=== PATIENT | male | born 1990 | race Caucasian/White ===

== ENCOUNTER 2020-12-20 13:08 | Outpatient (RCR) | payer MEDICAID, SELFPAY ==
[2020-12-20] MEDS: COVID-19 VACC, MRNA(PFIZER)/PF 30 MCG/0.3 ML SYRINGE IM (16:27)
[2021-01-10] MEDS: COVID-19 VACC, MRNA(PFIZER)/PF 30 MCG/0.3 ML SYRINGE IM (15:51)
== END 2020-12-20 23:59 ==
LOC: IMMUN 13:08
PROVIDERS: PCP Internal Medicine; Visit Provider Family Medicine
DX: Z23 Encounter for immunization (principal)
CPT/HCPCS: 0001A; 0002A; 91300

== ENCOUNTER 2022-12-19 23:51 | Emergency (ER) | payer MEDICARE, MEDICAID, SELFPAY ==
[2022-12-19 23:53] VITALS: BP 134/87; PULSE 86; RESP 18; TEMP 36.8; O2SAT 97; BMI 34.4
--- NOTE | 2022-12-20 00:40 | RAD_ITS ---
INDICATION: injury EXAMINATION/TECHNIQUE: X-RAY - LEFT XR Ankle Min 3 Views 3 VIEWS COMPARISON: None. FINDINGS: SOFT TISSUES: No soft tissue swelling or gas. No radiopaque foreign body. BONES/JOINTS: There is a nondisplaced fracture of the lateral malleolus. Normal alignment. Preservation of the joint space.. No sclerotic or destructive changes observed. RAD/Ankle min 3 Views IMPRESSION: There is a nondisplaced fracture of the lateral malleolus. Electronically Signed: Osvaldo Angel MD at 1:12 EDT ,
--- NOTE | 2022-12-20 00:45 | RAD_ITS ---
INDICATION: injury EXAMINATION/TECHNIQUE: X-RAY - LEFT XR Knee Complete 4 Views or More 5 VIEWS COMPARISON: None. FINDINGS: SOFT TISSUES: No soft tissue swelling or gas. Multiple nonspecific calcifications are seen in the soft tissues may represent phleboliths. BONES/JOINTS: No acute fracture or subluxation.. Normal alignment. Preservation of the joint space.. No sclerotic or destructive changes observed. RAD/Knee 4 or More Views IMPRESSION: No evidence of fracture. Electronically Signed: Osvaldo Angel MD at 1:14 EDT ,
--- NOTE | 2022-12-20 02:08 | EDS_ITS ---
HPI History of Present Illness Chief Complaint: Lower Extremity Injury Informant: patient and family Occured/Mechanism Mechanism/Context: Yes fall Onset/Context/Timing Onset: Today Narrative Narrative: Patient presents after fall at local restaurant. Patient reports that he ambulates with a walker normally. He was walking into a local restaurant when he tripped on uneven pavement. He has abrasions to his left knee and complains of pain to his left ankle. He has been able to bear weight since the injury. He denies striking his head or any back pain. [facility] Medical History Kidney disease Neurofibroma Home Medications amlodipine 2.5 mg tablet 2.5 mg PO DAILY 12/19/22 [History Last Taken Unknown] apixaban 2.5 mg tablet (Eliquis) 2.5 mg PO BID 12/19/22 [History Last Taken Unknown] carvedilol 25 mg tablet 37.5 mg PO BID 12/19/22 [History Last Taken Unknown] cetirizine 10 mg capsule mg 12/19/22 [History Last Taken Unknown] citalopram 20 mg tablet 20 mg PO BID 12/19/22 [History Last Taken Unknown] famotidine 20 mg tablet mg 12/19/22 [History Last Taken Unknown] ferrous sulfate 325 mg (65 mg iron) tablet (FeroSul) 1 mg PO DAILY 12/19/22 [History Last Taken Unknown] hydroxyzine HCl 50 mg tablet 50 mg PO BID PRN Itching 12/19/22 [History Last Taken Unknown] ipratropium bromide 21 mcg (0.03 %) nasal spray 2 spray intranasal BID 12/19/22 [History Last Taken Unknown] losartan 25 mg tablet 25 mg PO DAILY 12/19/22 [History Last Taken Unknown] pravastatin 10 mg tablet mg 12/19/22 [History Last Taken Unknown] promethazine 25 mg tablet 25 mg PO Q8H PRN n/v 12/19/22 [History Last Taken Unknown] sodium bicarbonate 650 mg tablet 1,300 mg PO BID 12/19/22 [History Last Taken Unknown] tizanidine 4 mg tablet 4 mg PO DAILY 12/19/22 [History Last Taken Unknown] torsemide 20 mg tablet 20 mg PO DAILY 12/19/22 [History Last Taken Unknown] oxycodone 5 mg tablet 5 mg PO Q6H PRN pain 3 days #10 tabs 12/20/22 [Rx Last Taken Unknown] Allergy/AdvReac Type Severity Reaction Status Date / Time ibuprofen AdvReac Other Verified 12/20/22 00:11 lisinopril AdvReac Other Verified 12/20/22 00:11 Social History Smoking Status: Never smoker ROS ROS ED Constitutional Constitutional ED: Denies chills or fever(s) Eyes Eyes: Denies discharge from eye(s) ENT ENT ED: Denies discharge from eye(s), rhinorrhea or sore throat Cardiovascular Cardiovascular: Denies chest pain Respiratory/Chest Respiratory/Chest: Denies cough or dyspnea Gastrointestinal Gastrointestinal: Denies abdominal pain, nausea or vomiting Genitourinary Genitourinary ED: Denies dysuria Musculoskeletal Musculoskeletal: Reports extremity pain; Denies back pain Integumentary Reports Abrasions; Denies rash Neurologic Neurologic: Denies headache(s) or weakness Psychiatric Psychiatric: Denies anxiety or depression Allergic/Immunologic Allergic/Immunologic ED: Denies lip swelling or urticaria EXAM Physical Exam Const Vital Signs: 12/19/22 23:53 Temperature 98.3 F Temperature Source Oral Pulse Rate 86 Respiratory Rate 18 Blood Pressure 134/87 H Blood Pressure Mean 102 Pulse Ox 97 Oxygen Delivery Method Room Air Positive well nourished and well developed General Appearance ED: well developed HEENT Reports normocephalic and head/scalp atraumatic Eyes PERRL and EOMs intact bilaterally Neck supple Chest Wall inspection of chest normal and palpation of chest normal Resp normal respiratory effort and clear to auscultation bilaterally Cardio regular rate and regular rhythm GI normal to inspection, nondistended, normoactive bowel sounds Palpation: soft Extremity Extremity Narrative: Abrasions noted to the left anterior knee. Mild tenderness with good range of motion. No tenderness of the left hip. Patient does have mild tenderness to the lateral malleolus of the left ankle. He has bilateral lower extremity edema that appears symmetric. No tenderness over the foot itself. No tenderness at the proximal fibula. Neuro oriented x3 and no sensory deficits noted Sensorium / Orientation: alert Motor Exam: strength 5/5 throughout Psych mental status grossly normal MDM MDM MDM Narrative Medical decision making narrative: Patient had taken Tylenol prior to arrival. X-rays of the left knee and left ankle are obtained. Radiography Diagnostic Testing: Clinical Impression(s) from Imaging Studies Ankle X-Ray 12/20/22 00:40 IMPRESSION: There is a nondisplaced fracture of the lateral malleolus. Electronically Signed: Osvaldo Angel MD at 1:12 EDT Reading Location ID and State: [facility] / [place] Tel , Service support , Knee X-Ray 12/20/22 00:45 IMPRESSION: No evidence of fracture. Electronically Signed: Osvaldo Angel MD at 1:14 EDT , Treatment and Re-Evaluation Narrative: Left knee x-ray per my interpretation reveals no acute fracture. Left ankle x- ray per my interpretation reveals distal fibular fracture. This does appear to be a spiral and at the tibial talar joint. Radiology interpretation is reviewed. Test results are discussed with patient and family at bedside. He is placed in a walking boot. He already uses a walker and will offload much weight off of this foot. He is given a prescription for oxycodone tabs that he can quynh e for breakthrough pain but will try to stick with Tylenol. He is referred to podiatry for follow-up. Discharge Plan Triage Chief Complaint: Lower Extremity Injury ED Provider: Brie De Leon Dx/Rx/DC Orders Clinical Impression: Ankle fracture Instructions: ED Ankle Fracture, Distal Fibula Prescriptions: New oxycodone 5 mg tablet 5 mg PO Q6H PRN (Reason: pain) 3 Days Qty: 10 0RF No Action carvedilol 25 mg tablet 37.5 mg PO BID Label Comments: TAKE 1 & 1/2 (ONE & ONE-HALF) TABLETS BY MOUTH TWICE DAILY WITH MEALS torsemide 20 mg tablet 20 mg PO DAILY Label Comments: TAKE 1 TABLET BY MOUTH EVERY OTHER DAY NEEDED tizanidine 4 mg tablet 4 mg PO DAILY Label Comments: TAKE 1 TABLET BY MOUTH ONCE DAILY amlodipine 2.5 mg tablet 2.5 mg PO DAILY Label Comments: TAKE 1 TABLET BY MOUTH ONCE DAILY hydroxyzine HCl 50 mg Tablet 50 mg PO BID PRN (Reason: Itching) citalopram 20 mg tablet 20 mg PO BID Label Comments: TAKE 1 & 1/2 (ONE & ONE-HALF) TABLETS BY MOUTH ONCE DAILY famotidine 20 mg Tablet pravastatin 10 mg tablet sodium bicarbonate 650 mg tablet 1,300 mg PO BID Label Comments: TAKE 2 TABLETS BY MOUTH TWICE DAILY ferrous sulfate [FeroSul] 325 mg (65 mg iron) tablet 1 mg PO DAILY promethazine 25 mg tablet 25 mg PO Q8H PRN (Reason: n/v) Label Comments: TAKE 1 TABLET BY MOUTH EVERY 8 HOURS NEEDED FOR NAUSEA AND VOMITING losartan 25 mg tablet 25 mg PO DAILY Label Comments: TAKE 1 TABLET BY MOUTH ONCE DAILY ipratropium bromide 21 mcg (0.03 %) [place],Non-Aerosol 2 spray INTRANASAL BID Rx Instructions: administer into each nostril cetirizine 10 mg Capsule Eliquis 2.5 mg Tablet 2.5 mg PO BID Primary Care Provider: Evens Todd Referrals: Devante Pina DPM [Med Staff - Active Staff] - 5-7 Days Evens Todd MD [Primary Care Provider] - Disposition Disposition: Home, Self Care Discharge Date/Time: 12/20/22 02:37
== END 2022-12-20 02:37 | disposition home or self-care (01) ==
PROVIDERS: Emergency Provider Emergency Medicine; PCP Internal Medicine; Visit Provider Emergency Medicine
DX: S82.892A Other fracture of left lower leg, initial encounter for closed fracture (principal); Y92.511 Restaurant or cafe as the place of occurrence of the external cause; W01.0XXA Fall on same level from slipping, tripping and stumbling without subsequent striking against object, initial encounter
CPT/HCPCS: 73564; 73610; 99283

== ENCOUNTER 2023-01-15 19:34 | Emergency (ER) | payer MEDICARE, MEDICAID, SELFPAY ==
[2023-01-15 19:35] VITALS: BP 140/81; PULSE 96; RESP 16; TEMP 37.3; O2SAT 98
--- NOTE | 2023-01-15 20:11 | EDS_ITS ---
HPI History of Present Illness Chief Complaint: Fatigue Informant: police/rv service technician Narrative Narrative: 32-year-old male here for fatigue. Patient states he is at malaise, brain fog that has been ongoing for the last week. He is feeling off and is dizzy. Patient denies chest pain, shortness of breath. Denies fever. Denies weakness, numbness, loss of sensation, facial droop or trouble speaking more than baseline. He endorses history of chronic kidney disease for which he is on kidney transplant list. [facility] Medical History Kidney disease Neurofibroma Home Medications amlodipine 2.5 mg tablet 2.5 mg PO DAILY 12/19/22 [History Last Taken Unknown] apixaban 2.5 mg tablet (Eliquis) 2.5 mg PO BID 12/19/22 [History Last Taken Unknown] carvedilol 25 mg tablet 37.5 mg PO BID 12/19/22 [History Last Taken Unknown] cetirizine 10 mg capsule mg 12/19/22 [History Last Taken Unknown] citalopram 20 mg tablet 20 mg PO BID 12/19/22 [History Last Taken Unknown] famotidine 20 mg tablet mg 12/19/22 [History Last Taken Unknown] ferrous sulfate 325 mg (65 mg iron) tablet (FeroSul) 1 mg PO DAILY 12/19/22 [History Last Taken Unknown] hydroxyzine HCl 50 mg tablet 50 mg PO BID PRN Itching 12/19/22 [History Last Taken Unknown] ipratropium bromide 21 mcg (0.03 %) nasal spray 2 spray intranasal BID 12/19/22 [History Last Taken Unknown] losartan 25 mg tablet 25 mg PO DAILY 12/19/22 [History Last Taken Unknown] pravastatin 10 mg tablet mg 12/19/22 [History Last Taken Unknown] promethazine 25 mg tablet 25 mg PO Q8H PRN n/v 12/19/22 [History Last Taken Unknown] sodium bicarbonate 650 mg tablet 1,300 mg PO BID 12/19/22 [History Last Taken Unknown] tizanidine 4 mg tablet 4 mg PO DAILY 12/19/22 [History Last Taken Unknown] torsemide 20 mg tablet 20 mg PO DAILY 12/19/22 [History Last Taken Unknown] oxycodone 5 mg tablet 5 mg PO Q6H PRN pain 3 days #10 tabs 12/20/22 [Rx Last T aken Unknown] Allergy/AdvReac Type Severity Reaction Status Date / Time ibuprofen AdvReac Other Verified 01/15/23 19:35 lisinopril AdvReac Other Verified 01/15/23 19:35 Social History Smoking Status: Never smoker ROS ROS ED ROS Narrative Constitutional: Denies fever, endorses fatigue and malaise HEENT: Denies sore throat Neck: Denies neck pain Cardiovascular: Denies chest pain, syncope Respiratory: Denies shortness of breath GI: Denies nausea vomiting or abdominal pain : Denies changes in urinary habits Musculoskeletal: Denies muscle or joint pain Neurologic: Denies numbness weakness or loss of sensation, endorses dizziness Skin denies rash EXAM Physical Exam Narrative Exam Narrative: Nursing triage notes reviewed, Vital signs reviewed Constitutional: please see mdm HENT: MMM Eyes: Pupils equal round and reactive to light, Extraocular muscles intact Neck: No stridor, no JVD, full neck ROM Lungs: Clear to auscultation, No wheezing or rales. No increased work of breathing, no conversational dyspnea, no accessory muscle use, no nasal flaring. No respiratory distress noted Heart: Regular rate and rhythm, No murmurs, No rubs and No gallops, 2+ distal pulses (radial, femoral, posterior tibial) in all extremities Abdomen: Soft, there is no tenderness, rigidity, rebound or guarding, no obvious peritoneal signs, no palpable pulsatile abdominal masses, no auscultated abdominal bruit : No CVAT Extremities: No edema Neuro: Alert and oriented x3, neuro exam at baseline, cranial nerves II through XII are intact. No pain with extraocular muscle movement. There is negative test of skew. Normal speech. 5 of 5 strength in upper and lower extremities in flexion extension. Intact sensation to light touch in upper and lower extremity dermatomes. No truncal or extremity ataxia. No dysdiadochokinesia. Normal gait. 2+ reflexes. No meningeal signs. Negative Babinski. NIH of 0 Skin: No rash or lesions noted Const Vital Signs: 01/15/23 19:35 01/15/23 20:58 01/15/23 20:58 Temperature 99.2 F H Temperature Source Temporal Pulse Rate 96 92 Respiratory Rate 16 Respiratory Effort Normal Non-Labored Respiratory Pattern Normal Blood Pressure 140/81 H Blood Pressure Mean 100 Pulse Ox 98 Oxygen Delivery Method Room Air MDM MDM MDM Narrative Medical decision making narrative: Chief Complaint: Fatigue, dizziness malaise External records reviewed: Seen in the ED on 12/20/2022 and diagnosed with left fibular fracture. Reviewed clinical clinic record shows baseline creatinine of 4, GFR 17 I considered the following differential diagnosis: Arrhythmia, myocardial ischemia, anemia, PE, pneumonia, COVID I obtained a broad lab and imaging work-up to further elucidate the etiology the patient complaints. Labs images remarkable for no evidence of severe systemic inflammation, severe anemia, no evidence of worsening renal function (baseline CKD), no evidence of myocardial schema, pancreatitis or UTI. COVID, flu were negative. I considered pulmonary embolism however thought this was less likely given the patient is currently on Eliquis has no chest pain or shortness of breath. Additionally, there are no signs of right heart strain on EKG and troponin was negative. No clear etiology of patient's complaints however this nonfocal neurologic exam, stable vitals, negative lab and imaging work-up I have low suspicion that his presentation is life-threatening at this time. He is appropriate for outpatient follow-up. I completed a structured, evidence-based clinical evaluation to screen for acute stroke and neurologic deficits in this patient. The patient has a normal detailed neurologic exam, which is highly sensitive for dangerous causes of dizziness, vertigo, or loss of balance. The evidence indicates that the patient is very low risk for an acute neurologic emergency and this is consistent with my clinical intuition. The risk of further workup or hospitalization is likely higher than the risk of the patient having a stroke or other dangerous neurologic condition. It is, therefore, in the patient?s best interest not to do additional emergent testing or to be hospitalized at this time. Shared Decision-Making I have discussed with the patient my clinical impression and the result of an evidence-based clinical evaluation to screen for stroke, as well as the risk of further testing and hospitalization. The evidence shows that the risk for stroke is less than 1%. Although the risk of stroke has not been completely eliminated, the risks of further testing or hospitalization likely exceed any potential benefit, and the patient agrees with not pursuing further emergent evaluation or hospitalization for stroke evaluation at this time. Factors affecting care: History of hypertension Social determinants of health: Poor health literacy History obtained from others: None Consults: None Lab Data Attestation: I reviewed the patient's lab results. Lab results narrative: CBC with no leukocytosis, noted anemia, no thrombocytopenia. BMP with baseline CKD, no significant electrolyte abnormalities, no anion gap to suggest endorgan hypoperfusion Troponin is negative, no evidence of myocardial ischemia Lipase is wnl indicating no pancreatic inflammation. UA without evidence of infection Labs: Laboratory Results - last 24 hr 01/15/23 01/15/23 01/15/23 21:00 21:00 21:00 WBC 5.3 RBC 3.41 L Hgb 10.8 L Hct 32.9 L MCV 96.5 H MCH 31.7 MCHC 32.8 RDW Std Deviation 44.6 H RDW Coeff of Dale 12.6 Plt Count 245 MPV 10.7 Immature Gran % (Auto) 0.200 Neut % (Auto) 58.5 Lymph % (Auto) 28.8 [place] % (Auto) 9.0 Eos % (Auto) 2.8 Baso % (Auto) 0.7 Absolute Neuts (auto) 3.1 Absolute Lymphs (auto) 1.54 Nucleated RBC % 0 Sodium 139 Potassium 4.4 Chloride 111 H Carbon Dioxide 23.0 Anion Gap 5 BUN 40 H Creatinine 4.62 H Estim Creat Clear Calc 23.70 Est GFR (MDRD) Af Amer 19 L Est GFR (MDRD) Non-Af 16 L BUN/Creatinine Ratio 8.7 L Glucose 130 H Calcium 8.7 Troponin I High Sens 4 Lipase 36 Urine Color Yellow Urine Clarity Clear Urine pH 7.0 Ur Specific [place] 1.005 Urine Protein 100 H Urine Glucose (UA) 250 H Urine Ketones Negative Urine Occult Blood 10 H Urine Nitrite Negative Urine Bilirubin Negative Urine Urobilinogen Normal Ur Leukocyte Esterase Negative Urine RBC 0 SEEN Urine WBC 0 SEEN Ur Squamous Epith Cells 0 SEEN Urine Bacteria 0 SEEN Urine Mucus 0 SEEN Radiography Chest X-Ray - ED: Read by ED Physician Diagnostic Testing: Clinical Impression(s) from Imaging Studies Chest X-Ray 01/15/23 21:06 IMPRESSION: Left basilar atelectasis. Electronically Signed: Seymour Thompson DO at 21:20 EDT Reading Location ID and State: [facility] / [place] Tel [phone], Service support , I have personally reviewed the patient's chest x-ray. Chest x-ray is unremarkable for pulmonary edema, pneumothorax, pneumonia or focal cardiopulmonary abnormality. EKG Initial EKG: Attestation: I personally reviewed and interpreted this EKG as follows: Comments: EKG with normal sinus rhythm, normal axis, normal intervals, no STEMI Discharge Plan Triage Chief Complaint: Fatigue ED Provider: Abel Ramirez Dx/Rx/DC Orders Clinical Impression: Fatigue, Malaise, CKD (chronic kidney disease), History of type 2 neurofibromatosis Instructions: ED Chronic Kidney Disease (CKD), ED Renal Insufficiency Prescriptions: No Action carvedilol 25 mg tablet 37.5 mg PO BID Label Comments: TAKE 1 & 1/2 (ONE & ONE-HALF) TABLETS BY MOUTH TWICE DAILY WITH MEALS torsemide 20 mg tablet 20 mg PO DAILY Label Comments: TAKE 1 TABLET BY MOUTH EVERY OTHER DAY NEEDED tizanidine 4 mg tablet 4 mg PO DAILY Label Comments: TAKE 1 TABLET BY MOUTH ONCE DAILY amlodipine 2.5 mg tablet 2.5 mg PO DAILY Label Comments: TAKE 1 TABLET BY MOUTH ONCE DAILY hydroxyzine HCl 50 mg Tablet 50 mg PO BID PRN (Reason: Itching) citalopram 20 mg tablet 20 mg PO BID Label Comments: TAKE 1 & 1/2 (ONE & ONE-HALF) TABLETS BY MOUTH ONCE DAILY famotidine 20 mg Tablet pravastatin 10 mg tablet sodium bicarbonate 650 mg tablet 1,300 mg PO BID Label Comments: TAKE 2 TABLETS BY MOUTH TWICE DAILY ferrous sulfate [FeroSul] 325 mg (65 mg iron) tablet 1 mg PO DAILY promethazine 25 mg tablet 25 mg PO Q8H PRN (Reason: n/v) Label Comments: TAKE 1 TABLET BY MOUTH EVERY 8 HOURS NEEDED FOR NAUSEA AND VOMITING losartan 25 mg tablet 25 mg PO DAILY Label Comments: TAKE 1 TABLET BY MOUTH ONCE DAILY ipratropium bromide 21 mcg (0.03 %) [place],Non-Aerosol 2 spray INTRANASAL BID Rx Instructions: administer into each nostril cetirizine 10 mg Capsule Eliquis 2.5 mg Tablet 2.5 mg PO BID oxycodone 5 mg tablet 5 mg PO Q6H PRN (Reason: pain) 3 Days Qty: 10 0RF Primary Care Provider: Evens Todd Referrals: Evens Todd MD [Primary Care Provider] - Disposition Disposition: Home, Self Care Discharge Date/Time: 01/15/23 22:54
--- NOTE | 2023-01-15 20:32 | EKG12_ITS ---
Test Reason : MALAISE Blood Pressure : / mmHG Vent. Rate : 087 BPM Atrial Rate : 087 BPM P-R Int : 158 ms QRS Dur : 086 ms QT Int : 348 ms P-R-T Axes : 032 034 055 degrees QTc Int : 418 ms Normal sinus rhythm Normal ECG Confirmed by MELVIN GARAY ([id number]), writer editor RUBY CHARLES ([id number]) on 01/19/2023 7:53:29 AM Referred By: Confirmed By:MELVIN GARAY
[2023-01-15 20:54] VITALS: BMI 34.8
[2023-01-15 20:58] VITALS: PULSE 92
[2023-01-15 21:05] LABS: Bacteria 0 SEEN /hpf (None Seen); Mucous, Urine 0 SEEN /hpf (<or=2+); Red Blood Cells-Urine 0 SEEN /hpf (0-5); Squamous Epithelial Cells - UA 0 SEEN /hpf (0-5); White Blood Cells 0 SEEN /hpf (0-5)
--- NOTE | 2023-01-15 21:06 | RAD_ITS ---
INDICATION: Fatigue EXAMINATION/TECHNIQUE: X-RAY - XR Chest 1 View COMPARISON: None. FINDINGS: LINES/DEVICES: None. LUNGS: No consolidation, edema or effusion. Left basilar atelectasis. No pneumothorax. MEDIASTINUM AND CARDIOVASCULAR STRUCTURES: Cardiac silhouette not enlarged. Central airways and mediastinal contour are unremarkable. BONES AND SOFT TISSUES: Mild scoliosis. RAD/Chest 1 View (Portable) IMPRESSION: Left basilar atelectasis. Electronically Signed: Seymour Thompson DO at 21:20 EDT ,
[2023-01-15 21:18] LABS: Absolute Lymphocyte Count 1.54 X10^3/uL (0.83-4.51); Absolute Neutrophil Count 3.1 X10^3/uL (2.0-7.7); Basophil# 0.04 X10^3/uL; Basophil% 0.7 % (0-1); Color, Urine Yellow (Yellow); Eosinophil# 0.15 X10^3/uL; Eosinophils% 2.8 % (0-5); Glucose, Dipstick 250 mg/dl (Normal); Hematocrit 32.9 % (40-54); Hemoglobin 10.8 g/dL (13.0-16.5); Ketone-Dipstick Negative (Negative); Leukocyte Esterase-Dipstick Negative /ul (Negative); Lymphocyte # 1.54 X10^3/ul (0.83-4.51); Lymphocyte % 28.8 % (19-41); Mean Corp Hgb Conc 32.8 g/dL (32-36); Mean Corpuscular Hgb 31.7 pg (27.0-32.0); Mean Corpuscular Volume 96.5 fL (80-94); Mean Platelet Vol. 10.7 fl (6.2-12.0); Monocyte# 0.48 X10^3/uL; NRBC Flagged by Analyzer 0 % (0-5); Neutrophil # 3.12 X10^3/uL (2.7-7.7); Neutrophil % 58.5 % (47-70); Nitrite-Dipstick Negative (Negative); Occult Blood-Urine 10 /ul (Negative); Platelet Count 245 K/mm3 (150-450); Protein-Dipstick 100 mg/dl (Negative); RBC Distribution Width CV 12.6 % (11.6-14.6); RBC Distribution Width SD 44.6 fl (35.1-43.9); Red Blood Count 3.41 M/mm3 (4.6-6.2); Specific Gravity, Urine 1.005 (1.002-1.030); Urine Bilirubin Dipstick Negative (Negative); Urine Clarity Clear (Clear); Urine Urobilinogen Normal (Normal); White Blood Count 5.3 K/mm3 (4.4-11.0)
[2023-01-15 21:35] LABS: Anion Gap 5 (5-15); BUN 40 mg/dL (7-18); BUN/Creat Ratio 8.7 RATIO (10-20); Calcium,Total 8.7 mg/dL (8.5-10.1); Chloride 111 mmol/L (98-107); Creatinine, Serum 4.62 mg/dL (0.70-1.30); EST Glomerular Filtration Rate 16 mL/min (>60); Est Glom Filt Rate - Afr Amer 19 mL/min (>60); Glucose 130 mg/dL (74-106); Lipase 36 U/L (13-75); Potassium 4.4 mmol/L (3.5-5.1); Sodium Level 139 mmol/L (136-145); Troponin-I HS 4 pg/mL (3.0-78.0)
== END 2023-01-15 22:54 | disposition home or self-care (01) ==
PROVIDERS: Emergency Provider Emergency Medicine; PCP Internal Medicine; Visit Provider Emergency Medicine
DX: R53.83 Other fatigue (principal); Q85.02 Neurofibromatosis, type 2; R53.81 Other malaise; N18.9 Chronic kidney disease, unspecified; I12.9 Hypertensive chronic kidney disease with stage 1 through stage 4 chronic kidney disease, or unspecified chronic kidney disease; Z79.01 Long term (current) use of anticoagulants; Z79.899 Other long term (current) drug therapy
CPT/HCPCS: 71045; 80048; 81001; 83690; 84484; 85025; 87428; 93005; 99284; J7030

== ENCOUNTER → 2023-03-09 | Outpatient (CLI) | payer MEDICARE, MEDICAID, SELFPAY ==
--- NOTE | 2023-03-09 15:20 | CT_ITS ---
CT LEFT LOWER EXTREMITY WITH 3-D IMAGING CLINICAL INDICATION: Ankle fracture. TECHNIQUE: Axial CT images of the LEFT lower extremity was performed IV contrast material. Coronal and sagittal reformats were provided. RADIATION DOSAGE (If Supplied By Facility): CTDIvol = ( 19.84 ) mGy, DLP = ( 497.06 ) mGycm COMPARISON: Left ankle x-rays dated December 20, 2022. FINDINGS: Bones: Osteopenia, likely from disuse. Oblique comminuted minimally displaced fracture of the distal fibula originating at the tibiotalar joint. Callus formation at the fracture site. No bridging callus. Soft Tissues: Lateral soft tissue swelling. The superficial soft tissues are normal without evidence of edema, hematoma, or foreign body. CT/Extremity Lower without Contra IMPRESSION: Osteopenia, likely from disuse. Oblique comminuted minimally displaced fracture of the distal fibula originating at the tibiotalar joint with callus formation at the fracture site. No bridging callus. Lateral soft tissue swelling. Electronically Signed: Damon Servin MD at 15:56 EDT ,
== END | disposition home or self-care (01) ==
LOC: CT 15:18
PROVIDERS: PCP Internal Medicine; Referring Provider Podiatrist; Visit Provider Podiatrist
DX: S82.62XA Displaced fracture of lateral malleolus of left fibula, initial encounter for closed fracture (principal)
CPT/HCPCS: 73700

== ENCOUNTER 2023-08-06 16:00 | Outpatient (RCR) | payer MEDICARE, MEDICAID, SELFPAY ==
--- NOTE | 2023-05-19 17:12 | HP.PTEVAL_ITS ---
Patient's Visit Information Visit Information Visit Information: GARDENIA CARO is a 33 year old M referred to Physical Therapy by Dr. Devante Pina DPM with a diagnosis of LEFT FRACTURE OF FIBULA. Date of Evaluation: 05/19/23 Physical Therapist: Sonido Jauregui, PT, Cert MDT, OCS Visit Plan Frequency: 2x /Week Duration: 4 Weeks Plan: PATIENT IS [place] USES PHONE AMBULATES WITH FWW WBAT PT INTERVENTIONS AQUATIC THERAPY ROM/FLEXABLITY LEFT ANKLE ,STRENGTHENING ANKLE ,GAIT AND BALANCE TRAINING Subjective Subjective: This 33 y/o male presents to physical therapy with left ankle fracture. Patient fracture displaced lateral malleolus in December. Patient was in Cast 8weeks then then boot for 4 weeks with progression of WB . Patient uses wheel walker for gait. . Patient seen DR x-rays done showed healing and wanted to start therapy in water. Patient has no pain. Patient denies paresthesia/tingling. Patient initially has edema . 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 Patient sleeping okay . Patient comorbities influences condition as well as ankle fracture. Patient has received general conditioning with PT. Patient goals to walk better SOCAIL: Lives with Step VOCATION: disablity Objective Objective: POSTURE: ( frontal plane mechanics ) pes planus ,calcaneal valgus ,forefoot eversion NEURO: c/o Paresthesia/tingling foot ,light touch intact GAIT: ambulates with fww , ER with calcaneal valgus decrease step length and stride length WBAT ,foot drop right BALANCE: fair + with fww , AROM: dorsiflexion - 20 degrees ,inversion 2 degrees ,eversion 5 degrees ,plantarflexion 50 degrees MMT: (peak force) anterior tibialis 3.7 ,peroneus 2.3 ,posterior tibialis 5.8 ,G-S 12.9 G-S tightness: Mod limited Balance/Special Test Scores Lower Extremity Functional Score: 26 Goals Goal 1:: Patient to be I with Aquatic therapy program Goal Time Frame: 4-6 Weeks Goal 2:: Patient to improve AROM ankle by 5 -10 degrees to improve gait and function Goal Time Frame: 4-6 Weeks Goal 3:: Patient to improve peak force of ankle stabilizers by 5-10# strength to improve function Goal Time Frame: 4-6 Weeks Goal 4:: Patient improve LFES score by 5 -10 points to improve QOL Goal Time Frame: 4-6 Weeks Goal 5:: Patient to demonstrate 50% improvement with improve function for ADLS Goal Time Frame: 4-6 Weeks Rehabilitation Potential Physical Therapy Diagnosis: This patient had fracture displaced of tibia in December 2022 with decrease ROM ,ankle ,weakness ,impairs gait and ADLS thus benefit from skilled PT Rehabilitation Potential: Good Anticipated Interventions Patient/Client Instruction: Educate patient on: Condition and Plan of Care For the Purpose of:: To decrease pain, To increase ROM, To improve muscle performance and motor function, To improve ability to perform ADL's, To increase tolerance to activity/condition/position, To improve ability of physical actions for home/community/work/leisure, To improve gait and locomotor functions, To improve health of tissue, To decrease soft tissue restriction, To increase flexibility/ROM, To improve endurance, To improve balance and To improve safety with gait Therapeutic Exercise to Include: Strength training, Endurance training, Balance training, Flexibilty training, Gait and locomotor training, In an aquatic setting and Active ROM Comment: LEFT ANKLE For the Purpose of:: To decrease pain Text: Thank you for the opportunity to evaluate your patient. For Medicare and Medicare HMO plans, please review the plan of care and approve it. It will need to be FAXED BACK to us at [phone] for Medicare purposes. For Medicare only, by signing this I certify the plan of care. Please let me know if there are questions or concerns regarding this plan of care. Physician Signature: Date:
--- NOTE | 2023-09-21 15:15 | HP.PTDCSUM_ITS ---
Discharge Summary D/C summary: It has been my pleasure to treat GARDENIA CARO referred by Dr. Devante Pina, DPM, with the diagnosis of LEFT FRACTURE OF FIBULA for a total of 10 visit(s). Discharge Date: Please see the following information for a summary of their discharge status. Subjective Subjective: Doing okay Overall Improvement % Improvement: 30 Objective Objective/Function: POSTURE: ( frontal plane mechanics ) pes planus ,calcaneal valgus ,forefoot eversion NEURO: c/o Paresthesia/tingling foot ,light touch intact GAIT: ambulates with fww , ER with calcaneal valgus decrease step length and stride length WBAT ,foot drop right BALANCE: fair + with fww , AROM: dorsiflexion - 20 degrees ,inversion 2 degrees ,eversion 5 degrees ,plantarflexion 53 degrees MMT: (peak force) anterior tibialis 3.6 ,peroneus 2.2,posterior tibialis 6.8 ,G- S 29.8 G-S tightness: Mod limited Goals Goal 1:: Patient to be I with Aquatic therapy program Goal Progress: Progressing Goal 2:: Patient to improve AROM ankle by 5 -10 degrees to improve gait and function Goal Progress: Progressing Goal 3:: Patient to improve peak force of ankle stabilizers by 5-10# strength to improve function Goal Progress: MET WITH G-S Goal 4:: Patient improve LFES score by 5 -10 points to improve QOL Goal Progress: Progressing Goal 5:: Patient to demonstrate 50% improvement with improve function for ADLS Goal Progress: Progressing Plan Plan: D.C D/C Information d/c sentence: If there are questions or concerns regarding this patient's physical therapy, please feel free to call me at [phone]. Thank you for the referral of this patient. Sincerely, Sonido Jauregui, PT, Cert MDT, OCS Balance/Gait/Functional tests Balance/Special Test Scores Lower Extremity Functional Score: 31 Improvement % Improvement: 30
== END 2023-08-06 19:00 | disposition home or self-care (01) ==
LOC: PT 16:00
PROVIDERS: PCP Internal Medicine; Referring Provider Podiatrist; Visit Provider Podiatrist
DX: S82.62XD Displaced fracture of lateral malleolus of left fibula, subsequent encounter for closed fracture with routine healing (principal)
CPT/HCPCS: 97113; 97162; 97530

== ENCOUNTER → 2023-12-14 | Outpatient (CLI) | payer MEDICARE, MEDICAID, SELFPAY ==
--- NOTE | 2023-12-14 17:45 | RAD_ITS ---
STUDY: X-RAY - ABDOMEN/PELVIS REASON FOR EXAM: Male, 33 years old. PD PLACEMENT UNABLE TO DRAIN TECHNIQUE: Two AP supine views of the abdomen and pelvis. COMPARISON: None. FINDINGS: Normal visualized lung bases. There is an unremarkable bowel gas pattern. There is no demonstrated free abdominal air. There is peritoneal dialysis catheter on the left. There are calcifications in the subcutaneous tissues of the abdomen and pelvis. Normal visualized osseous structures. RAD/Abdomen Single View IMPRESSION: Peritoneal dialysis catheter. No dilated loops of bowel. Electronically Signed: Mehran Briceño MD at 18:59 EDT ,
== END | disposition home or self-care (01) ==
PROVIDERS: PCP Internal Medicine; Referring Provider Internal Medicine Nephrology; Visit Provider Internal Medicine Nephrology
DX: N18.6 End stage renal disease (principal)
CPT/HCPCS: 74018